=== PATIENT | female | born 1980 | race Caucasian/White ===

== ENCOUNTER → 2018-08-05 | Outpatient (CLI) | payer OTHER ==
--- NOTE | 2018-08-05 14:59 | RAD ---
MR#: [id number] Date of Study: 08/05/2018 Ordering Physician: LÓPEZ BAH, Referring Physician: CHRISTOFER HALEY Tech: APPROVED REPORT Test Type: Exercise Stress Nurse/Tech: Ranjana Irwin RN Test Indications: Dyspnea,vomitting x1 month ago, elevated blood pressure Cardiac History: Hypertension,prediabetic Medications: See Electronic Medical Record Medical History: See Electronic Medical Record Resting ECG: SR Resting Heart Rate: 75 bpm Resting Blood Pressure: 139/82mmHg Pretest Chest Pain: No chest pain Nurse/Tech Notes S1,S2 and lungs are clear to auscultation. Consent: The procedure was explained to the patient in lay terms. Informed consent was witnessed. Talib eout was entered into [employer]. History and Stress Test performed by Carmen De La Cruz, RT (R) (N) Stress Symptoms Fatigue POST EXERCISE Reason for Termination: Reached target heart rate, Fatigue Target HR: Yes Max HR: 159 bpm 103% of Maximum Predicted HR: 154 bpm Exercise duration: 7:26 min:sec, 3 Stage Exercise capacity: 10METs Max Blood Pressure: 159/98mmHg Blood Pressure response to exercise: Normal blood pressure response during stress. Heart Rate response to exercise: WNL Chest Pain: No. Arrhythmia: No. ST Change: No. INTERPRETATION Stress EKG Conclusion: No evidence of stress induced EKG changes Conclusion 1. Average exercise capacity with 10 Mets achieved. 2. Normal resting and stress EKG 3. Normal BP/HR response. 4. Low risk stress test. 5. *Treadmill EKG only test, no imaging performed. Signed by : Chris Mason, Electronically Approved : 08/05/2018 14:58:41
== END | disposition home or self-care (01) ==
LOC: NM 09:39
PROVIDERS: ATTEND Family Medicine
DX: R03.0 Elevated blood-pressure reading, without diagnosis of hypertension (principal); R06.00 Dyspnea, unspecified; R06.02 Shortness of breath; R53.83 Other fatigue
CPT/HCPCS: 93017